=== PATIENT | male | born 1985 | race Caucasian/White ===

== ENCOUNTER 2024-05-17 18:56 | Emergency (ER) | payer OTHER, SELFPAY ==
[2024-05-17 19:05] VITALS: BP 145/96; PULSE 87; RESP 18; TEMP 36.6; O2SAT 99; BMI 34.3
--- NOTE | 2024-05-17 20:50 | ED_ITS ---
HPI - Allergic Reaction General Time Seen by Provider: 20:40 Date Seen: 05/17/24 Chief complaint: Insect Bite Stated complaint: Wasp sting Thursday, swelling, joint pain since Time Seen by Provider: 05/17/24 20:39 Source: patient Mode of arrival: ambulatory Limitations: no limitations History of Present Illness HPI narrative: Patient is a 38-year-old male who presents emergency department for evaluation as a bee/wasp sting to his left forearm. Patient reports that he was stung in the left forearm last Thursday. Patient states he does have a history of allergic reaction to wasp stings in the past. Patient reports this is being stung patient has had increased pain, swelling, achiness to his left upper extremity and reports that is now spreading up into his left shoulder and down into his left hand. Patient states he has tried [id number] benadryl, anti-itch cream with no relief. The patient states he has an EpiPen but did not use it. Patient states he came in due to worsening symptoms. Patient denies any fever, chills, chest pain, shortness of breath, sensation of throat swelling, denies any tingling, numbness, no other complaints. MD complaint: allergic reaction Related Data Previous Rx's ?Medication ?Instructions ?Recorded cephalexin 500 mg capsule 500 mg PO TID #20 caps 05/17/24 prednisone 50 mg tablet 50 mg PO DAILY #5 tabs 05/17/24 Allergies Allergy/AdvReac Type Severity Reaction Status Date / Time venom-wasp AdvReac Verified 05/17/24 19:09 Review of Systems Const Denies: fever ENMT Denies: throat pain Cardio Denies: chest pain or shortness of breath with exertion Resp Denies: shortness of breath GI Denies: abdominal pain Denies: painful urination Musculo Reports: extremity pain and extremity swelling; Denies: back pain Integ/Breast Reports: itching, redness, skin pain and skin swelling Neuro Denies: headache or numbness in extremities PFSH PFSH Social History Smoking Status: Unknown if ever smoked Exam Narrative: Exam Narrative: General: Afebrile, moderate distress HENT: MMM, no oropharyngeal lesions Eyes: PERRL, normal sclerae Neck: non-tender, supple Cardio: regular rate. Regular rhythm. Extremities well perfused Resp: Normal work of breathing, clear breath sounds Chest/Back: no visual signs of trauma, no CVA tenderness Abdomen: no tenderness, non-distended, no rebound, no guarding Neuro: alert and fully oriented. CN II-XII grossly intact. Grossly normal strength and sensation in all extremities. MSK: left upper extremity with recent insect bit to midforearm with diffuse swelling, mildly erythema, pain from elbow to hands, full ROM at shoulder, elbow, wrist, MCP, PIP, DIP Integumentary/Skin: no rash visualized Psych: normal affect, normal behavior Const: Vital Signs, click to edit/add: Vital Signs - 24 hr 05/17/24 19:05 Temperature 97.9 F Pulse Rate [Pulse Oximeter] 87 Respiratory Rate 18 Blood Pressure [Ri t Upper Arm] 145/96 H Pulse Oximetry 99 Oxygen Delivery Me thod Room Air Course Vital Signs Vital signs: Initial Vital Signs Temperature 97.9 F 05/17/24 19:05 Temperature Source Temporal Artery Scan 05/17/24 19:05 Pulse Rate 87 05/17/24 19:05 Respiratory Rate 18 05/17/24 19:05 Blood Pressure 145/96 H 05/17/24 19:05 Blood Pressure Mean 112 H 05/17/24 19:05 Blood Pressure Position Sitting 05/17/24 19:05 Pulse Oximetry 99 05/17/24 19:05 Oxygen Delivery Method Room Air 05/17/24 19:05 Vital Signs Temperature 97.9 F 05/17/24 19:05 Pulse Rate 87 05/17/24 19:05 Respiratory Rate 18 05/17/24 19:05 Blood Pressure 145/96 H 05/17/24 19:05 Pulse Oximetry 99 05/17/24 19:05 Oxygen Delivery Method Room Air 05/17/24 19:05 Temperature 97.9 F 05/17/24 19:05 Pulse Rate 87 05/17/24 19:05 Respiratory Rate 18 05/17/24 19:05 Blood Pressure 145/96 H 05/17/24 19:05 Pulse Oximetry 99 05/17/24 19:05 Oxygen Delivery Method Room Air 05/17/24 19:05 Medications Administered Medications: Discontinued Medications Generic Name Dose Route Start Last Admin Trade Name Freq PRN Reason Stop Dose Admin Prednisone 60 mg 05/17/24 20:50 05/17/24 20:55 Prednisone 20 Mg Tablet PO 05/17/24 20:51 60 mg ONCE ONE Administration MDM - Allergic Reaction MDM Narrative Medical decision making narrative: 38 yo male here with left upper extremity pain, swelling, redness secondary to recent insect bite/wasp sting. upon arrival patient is nontoxic appearing, afebrile, moderate distress. Patient mildly hypertensive upon arrival, otherwise hemodynamically stable. No respiratory distress, no throat pain, no sensation of throat is closing. On examination patient with recent wasp sting with diffuse erythema, swelling, tenderness to his left forearm. No obvious evidence of cellulitis at this time. Full range of motion. Suspect localized reaction secondary to wasp sting. At this time recommend supportive care with ice, Benadryl, [id number]-kexdike allergy medication, will give patient dose of prednisone the emergency department discharged home on a 5 day course. Will also discharge patient with a course of antibiotics to take if worsening symptoms over the next 24-72 hours with fever, increase in redness, , swelling, or concerns for infection. Patient agrees with holding off on antibiotics unless change in symptoms. Strict return precautions discussed. Patient understands and agrees. Discharge Plan Discharge Clinical Impression: Allergic reaction to bee sting Patient Disposition: Home, Self-Care Condition: Stable Instructions: Insect Bite or Sting (ED) Additional Instructions: Please follow-up with her primary care provider in the next 2-3 days for further evaluation and follow-up if no improvement of your symptoms. Please take ibzh-naq-iylszlt allergy medication daily (example Claritin, loratadine, Zyrtec). Please take steroids daily as directed. Please take Benadryl 1-2 tablets as needed every 6 hours for itching. Please ice and elevate while at rest to help with swelling. If you develops high fever, increase in redness (beefy redness), consider starting antibiotics. Please return to the emergency department if you develop any worsening symptoms. It was a pleasure taking care of her today. We hope you feel better soon. Activity Level: No Restrictions Prescriptions: New prednisone 50 mg tablet 50 mg PO DAILY Qty: 5 0RF cephalexin 500 mg capsule 500 mg PO TID Qty: 20 0RF Stand Alone Forms: [employer] Info Instructions
[2024-05-17] MEDS: predniSONE 20 MG TABLET 60 MG PO (20:55)
== END 2024-05-17 21:10 | disposition home or self-care (01) ==
LOC: ED 21:08
PROVIDERS: Emergency Provider Emergency Medicine
DX: T63.441A Toxic effect of venom of bees, accidental (unintentional), initial encounter (principal); R21 Rash and other nonspecific skin eruption
CPT/HCPCS: 99283; 99284; J7512